=== PATIENT | male | born 1965 | race Caucasian/White ===

== ENCOUNTER 2016-05-05 06:33 | Day surgery (SDC) | payer OTHER ==
[~2016-05-05 06:33] MED LIST: Lactated Ringers 1,000 ML IV SCH
[2016-05-05] MEDS ORDERED: Propofol 200 MG/20 ML SDV ONE (08:01)
[2016-05-05] MEDS ORDERED: fentaNYL 100 MCG/2 ML SDV ONE (08:01)
[2016-05-05 09:11] VITALS: BP 129/78
--- NOTE | 2016-05-05 12:32 | OR ---
DATE OF SURGERY: 05/05/2016. REFERRING PROVIDER: SINDY Hou. PRE-OPERATIVE DIAGNOSES: 1. Screening colonoscopy. This is the patient's second colonoscopy with last one being about 7 years ago per the patient report. 2. Positive family history of colon polyps in father, although one part of the chart mentions adenocarcinoma in father's history. POST-OPERATIVE DIAGNOSES: Mild sigmoid diverticulosis. Otherwise, normal colon. PROCEDURE: Colonoscopy. SURGEON: Chad Ornelas M.D. ANESTHESIA: Monitored anesthesia care. BOWEL PREP: Good. DESCRIPTION OF PROCEDURE: Casimiro is a 50-year-old male who was brought to the endoscopy suite after discussing risks and benefits of the procedure. Informed consent was obtained for conscious sedation and colonoscopy with or without biopsy and/or polypectomy. We also discussed possibility of missed lesions. Pre-procedure exam was unremarkable. IV, oxygen, and monitors were placed. The patient was placed in the left lateral decubitus position. Sedation was administered and a digital rectal exam was performed which was unremarkable. Colonoscope was passed into the rectum and slowly advanced all the way to the cecum. Cecum was viewed and photographed. The colonoscope was slowly withdrawn and the mucosa was closed observed in a direct circumferential manner. The ascending colon was unremarkable. The transverse colon was unremarkable. The descending colon was unremarkable. The sigmoid colon was remarkable for some mild diverticulosis. Retroflexion was performed and rectal mucosa was unremarkable. Scope was removed. The patient tolerated the procedure well. The patient was monitored until that baseline status. Discharge instructions were reviewed and the patient was discharged in good condition. COMPLICATIONS: None. TOTAL TIME: 15 minutes. ESTIMATED BLOOD LOSS: None. RECOMMENDATIONS/FOLLOW-UP: We discussed repeating colonoscopy in 5 to 7 years depending on what actual family history turns out to be. The patient will check in to father's history of polyps versus adenocarcinoma. I would like to kindly thank Mirza Corrales for this referral. DMB: 05/05/2016 08:48:43 MODL: 05/05/2016 12:21:09 /[id number]
== END 2016-05-05 09:35 | disposition home or self-care (01) ==
LOC: VM.SDS 06:33
PROVIDERS: ATTEND Family Medicine
DX: Z12.11 Encounter for screening for malignant neoplasm of colon (principal); K57.30 Diverticulosis of large intestine without perforation or abscess without bleeding
CPT/HCPCS: 45378; J2704; J3010; J7120

== ENCOUNTER 2022-12-11 11:48 | Emergency (ER) | payer OTHER ==
[2022-12-11] MEDS ORDERED: Sodium Chloride 0.9% 10 ML Syringe FLUSH PRN (11:52)
[2022-12-11] MEDS ORDERED: HYDROmorphone 0.5 MG/0.5 ML Syringe IVPUSH ONE ×3 (11:54→13:06)
[2022-12-11] MEDS ORDERED: Ondansetron 4 MG/2 ML SDV IVPUSH ONE (11:56)
[2022-12-11] MEDS ORDERED: Ketorolac 15 MG/ML SDV IVPUSH ONE (11:56)
[2022-12-11] MEDS ORDERED: Sodium Chloride 0.9% 1,000 ML IV SCH (12:00)
[2022-12-11 12:25] LABS: BASOPHILS PERCENT AUTO 0.2 % (0.2-1.2); EOSINOPHILS ABSOLUTE AUTO 0.1 x10^3/uL (0.0-0.5); EOSINOPHILS PERCENT AUTO 0.3 % (0.0-4.0); HEMATOCRIT 49.9 % (40.0-52.0); HEMOGLOBIN 17.6 g/dL (14.0-18.0); IMMATURE GRAN ABSOLUTE AUTO 0.05 x10^3/uL (0.00-0.07); LYMPHOCYTES ABSOLUTE AUTO 1.1 x10^3/uL (1.0-4.8); LYMPHOCYTES PERCENT AUTO 6.9 % (25.0-50.0); MEAN CORPUSCULAR HEMOGLOBIN 31.1 pg (26.0-32.0); MEAN CORPUSCULAR HGB CONC 35.3 g/dL (32.0-36.0); MEAN CORPUSCULAR VOLUME 88.2 fL (78.0-93.0); MONOCYTES ABSOLUTE AUTO 1.1 x10^3/uL (0.0-0.8); MONOCYTES PERCENT AUTO 6.8 % (2.0-11.0); NEUTROPHILS ABSOLUTE AUTO 13.7 x10^3/uL (1.8-7.7); NEUTROPHILS PERCENT AUTO 85.5 % (50.0-80.0); PLATELET COUNT,PLT 247 x10^3/uL (130-400); RED BLOOD CELL COUNT 5.66 x10^6/uL (4.5-6.0)
[2022-12-11 12:44] LABS: INR 0.9 (0.9-1.1); PROTHROMBIN TIME 9.7 SEC (9.5-12.2); PTT,PARTIAL THROMBOPLSTIN TIME 24.1 SEC (23.6-33.6)
[2022-12-11 12:50] LABS: A/G RATIO 1.08; ALANINE AMINOTRANSFERASE,ALT 79 U/L (16-63); ALKALINE PHOSPHATASE 81 U/L (46-116); ASPARTATE AMNIOTRANSFERASE,AST 79 U/L (15-37); BILIRUBIN TOTAL 0.8 mg/dL (0.2-1.0); BLOOD UREA NITROGEN,BUN 18 mg/dL (7-18); C-REACTIVE PROTEIN 1.91 mg/dL (<=0.30); CALCIUM 9.1 mg/dL (8.5-10.1); CARBON DIOXIDE,CO2 23 mmol/L (21-32); CHLORIDE,CL 99 mmol/L (98-107); CREATININE 1.2 mg/dL (0.70-1.30); GLUCOSE RANDOM 239 mg/dL (70-99); LIPASE 29 U/L (19-71); MAGNESIUM 1.6 mg/dL (1.8-2.4); POTASSIUM,K 4.2 mmol/L (3.5-5.1); PROTEIN TOTAL,TP 7.7 g/dL (6.4-8.2); SODIUM,NA 136 mmol/L (136-145)
[2022-12-11 12:57] LABS: ANION GAP 18.2 mmol/L (5-15); ESTIMATED GFR 71 mL/min (>=60)
[2022-12-11 12:58] LABS: LACTIC ACID 2.2 mmol/L (0.4-2.0)
[2022-12-11] MEDS ORDERED: Iopamidol 612 MG/ML 100 ML Bottle IVPUSH ONE (13:04)
[2022-12-11 13:58] LABS: APPEARANCE,URINE CLEAR (CLEAR); BILIRUBIN,URINE SMALL (NEGATIVE); COLOR,URINE AMBER (YELLOW); GLUCOSE,URINE 100 mg/dL (NEGATIVE); KETONES,URINE TRACE mg/dL (NEGATIVE); LEUKOCYTE ESTERASE,URINE NEGATIVE (NEGATIVE); NITRITE,URINE NEGATIVE (NEGATIVE); OCCULT BLOOD,URINE NEGATIVE (NEGATIVE); PH,URINE 5.5 (5.0-8.0); PROTEIN,URINE 100 mg/dL (NEGATIVE)
[2022-12-11] MEDS ORDERED: HYDROmorphone 1 MG/ML Syringe IVPUSH ONE ×2 (14:05→15:20)
[2022-12-11 14:07] LABS: AMORPHOUS SEDIMENT,URINE FEW; BACTERIA,URINE NOT SEEN /HPF (NOT SEEN); HYALINE CASTS,URINE MODERATE; MUCUS,URINE FEW /LPF (NOT SEEN); RBC,URINE 0-5 /HPF (NOT SEEN); SQUAMOUS EPITHELIAL CELLS,UR RARE /HPF (NOT SEEN); WBC,URINE 0-5 /HPF (NOT SEEN)
[2022-12-11 14:09] LABS: GRANULAR CASTS,URINE RARE
[2022-12-11] MEDS ORDERED: Sodium Chloride 0.9% 1,000 ML IV ONE (14:52)
[2022-12-11] MEDS ORDERED: Piperacillin/Tazobactam 3.375 GM in Sodium Chloride 0.9% 100 ML IV ONE (15:17)
[2022-12-11 16:21] VITALS: BP 125/80; PULSE 101
== END 2022-12-11 16:30 | disposition short-term general hospital (02) ==
LOC: VM.ED 11:48
DX: K81.9 Cholecystitis, unspecified (principal); G47.30 Sleep apnea, unspecified; E03.9 Hypothyroidism, unspecified; E66.9 Obesity, unspecified; Z68.36 Body mass index [BMI] 36.0-36.9, adult; Z79.899 Other long term (current) drug therapy; Z79.84 Long term (current) use of oral hypoglycemic drugs
CPT/HCPCS: 36415; 74177; 80053; 81001; 83605; 83690; 83735; 84484; 85025; 85610; 85730; 86140; 93005; 96361; 96365; 96375; 96376; 99284; 99285-25; J1170; J1885; J2405; J2543; J3490; J7030; Q9967